=== PATIENT | male | born 1985 | race Caucasian/White ===

== ENCOUNTER 2020-02-23 22:15 | Emergency (ER) | payer BC ==
[~2020-02-23] VITALS: Ht 185.4 cm; Wt 109.0 kg
--- NOTE | 2020-02-24 00:51 | PHYS DOC ---
Past Medical History Past Medical History: No Pertinent History Past Surgical History: Other Additional Past Surgical Histo: ankle Smoking Status: Current Every Day Smoker Alcohol Use: Occasionally General Adult EDM: Chief Complaint: LACERATION/AVULSION HPI: HPI: 34-year-old male who denies any significant past medical history, presents the ED with complaints of right anterior escalante injury after patient was running up the stairs, tripped and banged his escalante on the steps. Did not hit his head or lose consciousness. Cannot recall his last tetanus. Denies any alcohol or drug use. History of right broken ankle. Complains of pain localized to the laceration site, is ambulatory. Has no knee or ankle or hip pain. Review of Systems: Review of Systems: Constitutional: Denies fever or chills. [] Eyes: Denies change in visual acuity. [] HENT: Denies nasal congestion or sore throat. [] Respiratory: Denies cough or shortness of breath. [] Cardiovascular: Denies chest pain or edema. [] GI: Denies abdominal pain, nausea, vomiting, bloody stools or diarrhea. [] : Denies dysuria. [] Musculoskeletal: Denies back pain or saddle anesthesia Integument: Denies rash. [] Neurologic: Denies headache, focal weakness or sensory changes. [] Endocrine: Denies polyuria or polydipsia. [] Lymphatic: Denies swollen glands. [] Psychiatric: Denies depression or anxiety. [] Heart Score: Risk Factors: Risk Factors: DM, Current or recent (<one month) smoker, HTN, HLP, family history of CAD, obesity. Risk Scores: Score 0 - 3: 2.5% MACE over next 6 weeks - Discharge Home Score 4 - 6: 20.3% MACE over next 6 weeks - Admit for Clinical Observation Score 7 - 10: 72.7% MACE over next 6 weeks - Early Invasive Strategies Current Medications: Current Medications Medications (Trade) Dose Ordered Sig/Mason Start Time Stop Time Status Last Admin Dose Admin Diphtheria/ Tetanus/Acell Pertussis (ADACEL TDap SYRINGE) 0.5 ml ONCE ONCE 02/24/20 01:00 02/24/20 01:01 02/24/20 00:35 0.5 ML Lidocaine/ Epinephrine (LIDOCAINE 1%-EPI 1:100,000 Multi-Dose) 20 ml 1X ONCE 02/24/20 01:00 02/24/20 01:01 02/24/20 00:36 20 ML Neomycin/ Polymyxin/ Bacitracin (Triple Antibiotic Ointment) 1 pkt 1X ONCE 02/24/20 01:00 02/24/20 01:01 02/24/20 00:35 1 PKT Allergies: Allergies: Allergies Coded Allergies Type Severity Reaction Last Updated Verified No Known Drug Allergies 02/23/20 No Physical Exam: PE: Constitutional: Well developed, well nourished, no acute distress, non-toxic appearance. [] HENT: Normocephalic, atraumatic, bilateral external ears normal, oropharynx moist, no oral exudates, nose normal. [] Eyes: PERRLA, EOMI, conjunctiva normal, no discharge. [] Neck: Normal range of motion, no tenderness, supple, no stridor. [] Cardiovascular:Heart rate regular rhythm, no murmur [] Lungs & Thorax: Bilateral breath sounds clear to auscultation [] Abdomen: Bowel sounds normal, soft, no tenderness, no masses, no pulsatile masses. [] Skin: Warm, dry, no erythema, no rash. [] Back: No tenderness, no CVA tenderness. [] Extremities: 5.5 vertical laceration over anterior mid right escalante, no cyanosis, no clubbing, ROM intact, no edema. [] Neurologic: Alert and oriented X 3, normal motor function, normal sensory function, no focal deficits noted. [] Psychologic: Affect normal, judgement normal, mood normal. [] Current Patient Data: Vital Signs: Vital Signs Date Time Temp Pulse Resp B/P (MAP) Pulse Ox O2 Delivery O2 Flow Rate FiO2 02/23/20 23:02 98.8 92 22 134/94 (107) 99 Room Air 98.8 EKG: EKG: [] Radiology/Procedures: Radiology/Procedures: Indication: 5.5 cm laceration over right mid anterior escalante Procedure: The patient was placed in the appropriate position and anesthesia around the laceration margins with 1% lidocaine with epinephrine. The area was then copiously irrigated with normal saline. The laceration was closed with 4-0 nylon, total of 6 sutures. The wound area was then dressed with triple antibiotic ointment and sterile dressings. Wound care instructions given to patient.. Total repaired wound length: 5.5 cm. Other Items: None The patient tolerated the procedure none. Complications: None, normal plantarflexion and dorsiflexion pre-and post laceration repair.[] IMAGING REPORT Signed PATIENT: CLAUDIA ACUNA ACCOUNT: [id number] : 1985 LOCATION: ER AGE: 34 SEX: M EXAM STATUS: DEP ER ORD. PHYSICIAN: LIBRA BECK DO REASON: laceration PROCEDURE: TIBIA FIBULA RIGHT Right tibia-fibula AP lateral x-rays HISTORY: Laceration of the right leg. FINDINGS: Laceration defect along the anterior and lateral calf. No radiopaque foreign body evident. No fracture or dislocation. Fixation screws across the distal tibia fibula syndesmosis with mild bone lysis surrounding the screws could indicate loosening. Old healed proximal fibular shaft fracture deformity. IMPRESSION: No acute osseous injury. Laceration of the anterior and lateral mid calf. No radiopaque foreign body. Fixation screws of the distal tibia fibula syndesmosis as described above. Electronically signed by: Terry Stone MD (02/24/2020 4:14 AM) [facility] [place]CTATED and SIGNED BY: TERRY STONE MD DATE: 02/24/20 0414 Course & Med Decision Making: Course & Med Decision Making Pertinent Labs and Imaging studies reviewed. (See chart for details) Cervical injury to right anterior escalante with laceration status post repair. Wound care instructions given. Suture removal in 7 to 10 days. Strict ED return precautions given for severe pain, rash, fever or neurologic deficits of extremity. Encouraged urgent outpatient follow-up with PMD and wound care for suture removal in 7 to 10 days. Life-threatening processes were considered but are low suspicion at this time, given history and physical exam. Pt was educated on all prescription medications and adverse effects. All patient's questions were answered and pt was stable at time of discharge. Life/limb-threatening differential includes but is not limited to, fracture, dislocation, laceration, osteomyelitis, compartment syndrome, neurovascular injury or deficit, infection (abscess, cellulitis, septic arthritis), head/neck trauma, tendon or ligament injury. I spoken with the patient and her caregivers. I explained the patient's condition, diagnoses and treatment plan based on the information available to me at this time. I have answered the patient and her caregiver's questions and addressed any concerns. The patient and her caregivers have a good understanding of patient's diagnosis, condition and treatment plan as can be expected at this point. Vital signs have been stable. Patient's condition is stable and appropriate for discharge from the emergency department. Patient will pursue further outpatient evaluation with primary care physician or other designated or consulting physician as outlined in the discharge instructions. The patient and/or caregivers are agreeable to this plan of care and follow-up instructions have been explained in detail. The patient and/or caregivers have received these instructions in written form and have expressed an understanding of the discharge instructions. The patient and/or caregivers are aware that any significant change of condition or worsening of symptoms should prompt immediate return to this or the closest emergency department or call to 1. Chantal Disclaimer: Chantal Disclaimer: This electronic medical record was generated, in whole or in part, using a voice recognition dictation system. Departure Departure Impression: Primary Impression: Laceration of skin of right lower leg without complication Additional Impression: Need for Tdap vaccination Disposition: 01 DC HOME SELF CARE/HOMELESS Condition: STABLE Referrals: NO PCP (PCP) SUTURE REMOVAL IN 7-10 DAYS FOLLOW UP WITH FAMILY MEDICINE: Family Medicine Address: [address] [place] [address] Patient Instructions: Laceration Care, Adult, Sutured Wound Care Additional Instructions: FOLLOW UP WITH WOUND CARE: [facility] Address: [address], [address] [place] [address] EMERGENCY DEPARTMENT GENERAL DISCHARGE INSTRUCTIONS Thank you for coming to [facility] Emergency Department (ED) today and trusting us with you care. We trust that you had a positive experience in our Emergency Department. If you wish to speak to the department management, you may call the Director at [phone]. YOUR FOLLOW UP INSTRUCTIONS ARE FOLLOWS: 1. Do you have a private Doctor? If you do not have a private doctor, please ask for a resource list of physicians or clinics that may be able to assist you with follow up care. 2. The Emergency Physicain has interpreted your x-rays. The X-Ray specialist will also review them. If there is a change in the findings, you will be notified in 48 hours when at all possible. 3. A lab test or culture has been done, your results will be reviewed and you will be notified if you need a change in treatment. ADDITIONAL INSTRUCTIONS AND INFORMATION: 1. Your care today has been supervised by a physician who is specially trained in emergency care. Many problems require more than one evaluation for a complete diagnosis and treatment. We recommend that you schedule your follow up appointment as recommended to ensure complete treatment of you illness or injury. If you are unable to obtain follow up care and continue to have a problem, or if your condition worsens, we recommend that you return to the ED. 2. We are not able to safely determine your condition over the phone nor are we able to give sound medical advice over the phone. For these safety reasons, if you call for medical advice we will ask you to come to the ED for further evaluation. 3. If you have any questions regarding these discharge instructions please call the ED at [phone]. SAFETY INFORMATION: In the interest of safety, wellness, and injury prevention; we encourage you to wear your sealbelt, if you smoke; quite smoking, and we encourage family to use a protective helmet for bicycling and other sporting events that present an increased risk for head injury. IF YOUR SYMPTOMS WORSEN OR NEW SYMPTOMS DEVELOP, OR YOU HAVE CONCERNS ABOUT YOUR CONDITION; OR IF YOUR CONDITION WORSENS WHILE YOU ARE WAITING FOR YOUR FOLLOW UP APPOINTMENT; EITHER CONTACT YOUR PRIMARY CARE DOCTOR, THE PHYSICIAN WHOSE NAME AND NUMBER YOU WERE GIVEN, OR RETURN TO THE ED IMMEDIATELY. Scripts Neomycn/Baci Zn/Pmyx Bs/Pramox (Triple Antibioti-Pain Rlf Oint) 28 Gm Oint...g. 28 GM TP QID PRN for PAIN for 4 Days, #1 [facility] [place] Prov: LIBRA BECK DO 02/24/20 LIBRA BECK DO Feb 24, 2020 00:51
[2020-02-24] MEDS ORDERED: LIDOCAINE 1%/EPI 1:100,000 20 ML VIAL. INJ ONE (01:00)
[2020-02-24] MEDS ORDERED: NEOMY/BACITR/POLYMYXIN OINT PACKET. TP ONE (01:00)
[2020-02-24] MEDS ORDERED: DIPH,PERTUSS(ACELL),TET VAC/PF 0.5 ML SYRINGE. VAX IM ONE (01:00)
[2020-02-24] MEDS ORDERED: NEOM28OI21 TP (02:37)
[2020-02-24 03:00] VITALS: BP 141/78
--- NOTE | 2020-02-24 04:16 | RAD ---
Right tibia-fibula AP lateral x-rays HISTORY: Laceration of the right leg. FINDINGS: Laceration defect along the anterior and lateral calf. No radiopaque foreign body evident. No fracture or dislocation. Fixation screws across the distal tibia fibula syndesmosis with mild bone lysis surrounding the screws could indicate loosening. Old healed proximal fibular shaft fracture deformity. IMPRESSION: No acute osseous injury. Laceration of the anterior and lateral mid calf. No radiopaque foreign body. Fixation screws of the distal tibia fibula syndesmosis as described above. Electronically signed by: Bienvenido Stone MD (02/24/2020 4:14 AM) [facility]
== END 2020-02-24 03:12 | disposition home or self-care (01) ==
LOC: ER 22:15
DX: S81.811A Laceration without foreign body, right lower leg, initial encounter (principal); F17.200 Nicotine dependence, unspecified, uncomplicated; Z98.890 Other specified postprocedural states; W01.0XXA Fall on same level from slipping, tripping and stumbling without subsequent striking against object, initial encounter; Y93.89 Activity, other specified; Y92.89 Other specified places as the place of occurrence of the external cause; Y99.8 Other external cause status
CPT/HCPCS: 12002; 73590; 90471; 90715; 99285; J3490